=== PATIENT | female | born 1985 | race Caucasian/White ===

== ENCOUNTER 2021-08-26 23:35 | Inpatient (IN) | payer OTHER ==
[2021-08-27] MEDS: ELECTROLYTE-148 SOLN 1,000 ML IV SCH (01:00)
[2021-08-27 01:31] LABS: BASO % 0.4 % (0-2.0); EOS % 0.3 % (0-4.5); HEMATOCRIT 34.6 % (32.4-45.2); HEMOGLOBIN 11.6 GM/dL (10.7-15.3); MCH 27.1 pg (25.7-33.7); MCHC 33.5 g/dl (32.0-36.0); MEAN CELL VOLUME 80.8 fl (80-96); MEAN PLT VOLUME 9.2 fl (7.5-11.1); MONO % 5.6 % (3.8-10.2); NEUT % 64.7 % (42.8-82.8); PLATELET COUNT 226 10^3/uL (134-434); RBC 4.29 M/mm3 (3.60-5.2); RDW 15.7 % (11.6-15.6); WHITE BLOOD COUNT 8.4 K/mm3 (4.0-10.0)
[2021-08-27 01:50] LABS: INR 0.92 (0.83-1.09); PROTHROMBIN TIME (PATIENT) 10.6 SEC (9.7-13.0)
[2021-08-27 01:52] LABS: ACTIVATED PTT 27.9 SECONDS (25.2-36.5)
[2021-08-27 01:53] LABS: BLOOD UREA NITROGEN 19.6 mg/dL (7-18); CALCIUM 8.7 mg/dL (8.5-10.1)
[2021-08-27 01:57] LABS: CREATININE 0.8 mg/dL (0.55-1.3)
[2021-08-27] MEDS ORDERED: PROMETHAZINE HCL 25 MG/1 ML VIAL ONE (01:59)
[2021-08-27] MEDS ORDERED: BUTORPHANOL TARTRATE 2 MG/ML VIAL ONE (01:59)
[2021-08-27] MEDS ORDERED: PROMETHAZINE HCL 25 MG/1 ML VIAL IVPUSH ONE (02:02)
[2021-08-27] MEDS ORDERED: BUTORPHANOL TARTRATE 1 MG/ML VIAL IVPB ONE (02:02)
[2021-08-27 02:22] VITALS: BMI 37.5
[2021-08-27] MEDS ORDERED: OXYTOCIN 20 UNITS in 0.9% NS 20 UNIT/1,000 ML INFUS.BAG IV ONE (05:06)
[2021-08-27] MEDS ORDERED: MISOPROSTOL 200 MCG TABLET ONE (07:45)
[2021-08-27] MEDS ORDERED: ACETAMINOPHEN 325 MG TABLET (FP) PO PRN (07:53)
[2021-08-27] MEDS ORDERED: BENZOCAINE 28 GM HEMORRHOIDAL OINTMENT TP PRN (07:53)
[2021-08-27] MEDS ORDERED: BENZOCAINE 20% 57 GM BOTTLE TP PRN (07:53)
[2021-08-27] MEDS ORDERED: BISACODYL 10 MG SUPP.RECT RC PRN (07:53)
[2021-08-27] MEDS ORDERED: WITCH HAZEL 50% (TUCKS) 40 PAD/JAR PAD TP PRN (07:53)
[2021-08-27] MEDS ORDERED: MISOPROSTOL 100 MCG TABLET PV ONE (07:54)
[2021-08-27] MEDS ORDERED: OXYTOCIN 20 UNITS in 0.9% NS 20 UNIT/1,000 ML INFUS.BAG IV SCH (08:00)
[2021-08-27] MEDS: IBUPROFEN 600 MG TABLET (FP) PO PRN ×2 (10:24→17:48)
[2021-08-28 09:25] LABS: BASO % 0.3 % (0-2.0); EOS % 0.9 % (0-4.5); HEMATOCRIT 33.3 % (32.4-45.2); HEMOGLOBIN 10.8 GM/dL (10.7-15.3); LYMPH % 32.4 % (8-40); MCH 26.7 pg (25.7-33.7); MCHC 32.4 g/dl (32.0-36.0); MEAN CELL VOLUME 82.3 fl (80-96); MEAN PLT VOLUME 9.3 fl (7.5-11.1); MONO % 5.3 % (3.8-10.2); NEUT % 61.1 % (42.8-82.8); PLATELET COUNT 231 10^3/uL (134-434); RBC 4.04 M/mm3 (3.60-5.2); RDW 15.4 % (11.6-15.6); WHITE BLOOD COUNT 10.3 K/mm3 (4.0-10.0)
[2021-08-28] MEDS: IBUPROFEN 600 MG TABLET (FP) PO PRN ×2 (10:30→19:29)
[2021-08-28] MEDS ORDERED: DIPHTH,PERTUSS(ACELL),TET 0.5 ML DISP.SYRIN IM ONE (12:00)
[2021-08-28] MEDS ORDERED: FLU VACC QS2021-22(6MOS UP)/PF 60 MCG/0.5 ML SYRINGE IM ONE (12:00)
[2021-08-28] MEDS ORDERED: SENNOSIDES/DOCUSATE COMBO (SENNA PLUS) TABLET (UD) PO PRN (22:00)
[2021-08-29] MEDS: IBUPROFEN 600 MG TABLET (FP) PO PRN (08:33)
[2021-08-29 09:09] VITALS: BP 110/64; PULSE 81; TEMP 99.3
[2021-08-29] MEDS: ELECTROLYTE-148 SOLN 1,000 ML IV SCH (10:21)
== END 2021-08-29 12:40 | disposition home or self-care (01) | DRG 560 ==
LOC: JDEL 23:35 → JLDR 08-27 00:10 → J3W 08-27 09:40
PROVIDERS: ADMIT Student in an Organized Health Care Education/Training Program; ATTEND Student in an Organized Health Care Education/Training Program
PROC: 10E0XZZ Delivery of Products of Conception, External Approach (ICD-10-PCS; principal; 2021-08-27)
DX: O80 Encounter for full-term uncomplicated delivery (principal); Z3A.38 38 weeks gestation of pregnancy; Z37.0 Single live birth
CPT/HCPCS: 36415; 59409; 80048; 85025; 85610; 85730; 86780; 86850; 86900; 86901; 90686; 90715; C9803-CS; G0008; U0003; U0005